=== PATIENT | female | born 1930 | race Caucasian/White ===

== ENCOUNTER 2017-09-23 17:32 | Emergency (ER) | payer MEDICARE, BC ==
[~2017-09-23] VITALS: Ht 165.1 cm; Wt 55.0 kg
[~2017-09-23 17:32] MED LIST: ASPI-1160 PO; FERR325T23 PO; HYDR-4135 PO; METF500T4 PO; METO-396 PO
[2017-09-23] MEDS ORDERED: CLONIDINE 0.1MG TABLET PO ONE ×3 (17:45→22:00)
[2017-09-24 01:00] VITALS: BP 188/80
[2017-09-24] MEDS ORDERED: HYDRALAZINE HCL 50MG TABLET PO ONE (01:00)
[2017-09-24] MEDS ORDERED: METOPROLOL TARTRATE 25MG TABLET PO ONE (01:00)
== END 2017-09-24 01:25 | disposition home or self-care (01) ==
LOC: ER 18:14
DX: I16.0 Hypertensive urgency (principal); I10 Essential (primary) hypertension; E11.65 Type 2 diabetes mellitus with hyperglycemia; Z79.82 Long term (current) use of aspirin
CPT/HCPCS: 99284

== ENCOUNTER 2017-09-24 02:00 | Emergency (ER) | payer MEDICARE, BC ==
[~2017-09-24] VITALS: Ht 165.1 cm; Wt 55.0 kg
[2017-09-24] MEDS ORDERED: HYDRALAZINE HCL 50MG TABLET PO ONE (03:30)
[2017-09-24] MEDS ORDERED: METOPROLOL TARTRATE 25MG TABLET PO ONE (03:30)
[2017-09-24] MEDS ORDERED: HYDROCODONE/ACETAMINOPHEN 10/325MG TABLET PO ONE (05:15)
[2017-09-24 07:33] VITALS: BP 171/78
== END 2017-09-24 07:42 | disposition home or self-care (01) ==
LOC: ER 02:00
DX: I10 Essential (primary) hypertension (principal); E11.9 Type 2 diabetes mellitus without complications; Z79.82 Long term (current) use of aspirin
CPT/HCPCS: 99284

== ENCOUNTER → 2017-11-10 | Outpatient (CLI) | payer MEDICARE, BC | END | disposition home or self-care (01) | LOC: CT 10:49 | PROVIDERS: ATTEND Orthopaedic Surgery | DX: S42.291A Other displaced fracture of upper end of right humerus, initial encounter for closed fracture (principal); M19.011 Primary osteoarthritis, right shoulder; X58.XXXA Exposure to other specified factors, initial encounter; Y93.89 Activity, other specified; Y92.89 Other specified places as the place of occurrence of the external cause; Y99.8 Other external cause status | CPT/HCPCS: 73200 ==

== ENCOUNTER 2018-04-10 15:17 | Inpatient (IN) | payer MEDICARE, BC ==
[~2018-04-10] VITALS: Ht 172.7 cm; Wt 78.0 kg
[~2018-04-10 15:17] MED LIST changes: +FURO-151 MT; -HYDR-4135 PO; +METF-414 PO; -METF500T4 PO
[2018-04-10] MEDS ORDERED: SODIUM CHLORIDE 0.9% 1,000 ML IV ONE (15:35)
[2018-04-10 16:34] LABS: CHLORIDE 106 mEq/L (98-107); INR 1.1; PROTHROMBIN TIME 10.8 sec (9.1-11.1)
[2018-04-10 16:36] LABS: BASOPHILS % 0.2 % (0.0-2.0); EOSINOPHILS % 0.3 % (0.0-5.0); HEMATOCRIT. 40.5 % (36.0-48.0); HEMOGLOBIN. 13.5 g/dL (12.0-16.0); LYMPHOCYTES % 9.5 % (20.0-50.0); MEAN CORPUSCULAR HEMOGLOBIN 30.1 pg (28.0-32.0); MEAN CORPUSCULAR VOLUME 90.2 fL (81.0-99.0); MONOCYTES % 5.8 % (2.0-8.0); NEUTROPHILS % 84.2 % (40.0-76.0); PLATELET 212 x1000/uL (130-400); RED BLOOD CELL COUNT 4.49 mill/uL (4.2-5.4); RED CELL DISTRIBUTION WIDTH 15.1 % (11.6-14.6)
[2018-04-10 16:45] LABS: CREATINE KINASE 462 IU/L (26-192)
[2018-04-10] MEDS ORDERED: HYDR-4134 PO (18:27)
[2018-04-10 18:38] LABS: CLARITY URINE TURBID (CLEAR); COLOR URINE YELLOW (YELLOW); KETONES URINE TRACE (NEGATIVE); LEUKOCYTE ESTERASE URINE 3+ (NEGATIVE); NITRITE URINE NEGATIVE (NEGATIVE); OCCULT BLOOD URINE TRACE (NEGATIVE); PH URINE 7.5 (4.5-8.0); PROTEIN URINE 3+ (NEGATIVE); SPECIFIC GRAVITY URINE 1.017 (1.005-1.030)
[2018-04-10] MEDS ORDERED: VANCOMYCIN 1 G PREMIX 200 ML IV ONE (19:00)
[2018-04-10] MEDS ORDERED: PIPERACILLIN/TAZ 3.375G PREMIX 50 ML IV ONE (19:00)
[2018-04-10] MEDS ORDERED: CEFTRIAXONE 1 G PREMIX 50 ML IV ONE (19:00)
[2018-04-10] MEDS ORDERED: SODIUM CHLORIDE 0.9% 1000ML BAG (SEPSIS BOLUS) IV ONE (19:00)
[2018-04-11] VITALS (7 sets, daily range): BP systolic 100–176; BP diastolic 54–102
[2018-04-11] MEDS ORDERED: DEXTROSE 50% WATER 50ML SYRINGE IV PRN (06:15)
[2018-04-11] MEDS ORDERED: ONDANSETRON HCL 4MG/2ML INJ IV PRN (06:15)
[2018-04-11] MEDS ORDERED: ACETAMINOPHEN 650MG/20.3ML UDC PO PRN (06:15)
[2018-04-11] MEDS: BLOOD SUGAR DIAGNOSTIC STRIP TEST SCH ×4 (06:31→21:16)
[2018-04-11] MEDS: INSULIN LISPRO 100 UNITS/ML SUBCUT SCH ×4 (06:43→21:28)
[2018-04-11] MEDS: HYDRALAZINE HCL 25MG TABLET PO SCH ×3 (06:49→21:35)
[2018-04-11] MEDS ORDERED: VANCOMYCIN 1 G PREMIX 200 ML IV SCH (08:00)
[2018-04-11] MEDS ORDERED: ASPIRIN 81MG TABLET PO SCH (09:00)
[2018-04-11] MEDS ORDERED: METOPROLOL TARTRATE 25MG TABLET PO SCH (09:00)
[2018-04-11 10:22] LABS: BASOPHILS % 0.3 % (0.0-2.0); EOSINOPHILS % 1.5 % (0.0-5.0); HEMATOCRIT. 29.8 % (36.0-48.0); HEMOGLOBIN. 10.2 g/dL (12.0-16.0); LYMPHOCYTES % 15.3 % (20.0-50.0); MEAN CORPUSCULAR HEMOGLOBIN 30.5 pg (28.0-32.0); MEAN CORPUSCULAR VOLUME 89.3 fL (81.0-99.0); MEAN PLATELET VOLUME 8.7 fl (7.4-10.4); MONOCYTES % 8.1 % (2.0-8.0); NEUTROPHILS % 74.8 % (40.0-76.0); PLATELET 157 x1000/uL (130-400); RED BLOOD CELL COUNT 3.34 mill/uL (4.2-5.4)
[2018-04-11] MEDS: PIPERACILLIN/TAZ 2.25G PREMIX 50 ML IV SCH ×3 (13:28→21:35)
[2018-04-11 13:46] LABS: AMMONIA 33 uMol/L (<32)
[2018-04-11] MEDS ORDERED: POTASSIUM CHLORIDE INJ 40 MEQ in DEXT 5% WATER 250 ML IV SCH (14:00)
[2018-04-11] MEDS ORDERED: PIPERACILLIN/TAZOBACTAM 2.25 G in DEXTROSE 5% WATER 50 ML IV SCH (14:00)
[2018-04-11 17:40] LABS: VITAMIN B12 SERUM >2000 pg/mL pg/mL (211-911)
[2018-04-11] MEDS ORDERED: ENOXAPARIN 30MG/0.3ML SYR SUBCUT SCH (18:15)
[2018-04-11] MEDS: NYSTATIN POWDER 15GM TOP SCH (21:17)
[2018-04-11] MEDS: CARVEDILOL 12.5MG TABLET PO SCH (21:19)
[2018-04-11] MEDS: DILTIAZEM HCL 60MG TABLET PO SCH (21:35)
[2018-04-12] VITALS (7 sets, daily range): BP systolic 132–165; BP diastolic 53–100
[2018-04-12] MEDS: PIPERACILLIN/TAZ 2.25G PREMIX 50 ML IV SCH (06:04)
[2018-04-12] MEDS: HYDRALAZINE HCL 25MG TABLET PO SCH (06:04)
[2018-04-12] MEDS: DILTIAZEM HCL 60MG TABLET PO SCH ×3 (06:04→22:00)
[2018-04-12] MEDS: BLOOD SUGAR DIAGNOSTIC STRIP TEST SCH ×4 (06:05→20:45)
[2018-04-12 07:18] LABS: BASOPHILS % 0.4 % (0.0-2.0); HEMATOCRIT. 30.3 % (36.0-48.0); HEMOGLOBIN. 10.4 g/dL (12.0-16.0); LYMPHOCYTES % 17.7 % (20.0-50.0); MEAN CORPUSCULAR HEMOGLOBIN 30.6 pg (28.0-32.0); MEAN CORPUSCULAR VOLUME 89.1 fL (81.0-99.0); MEAN PLATELET VOLUME 8.9 fl (7.4-10.4); MONOCYTES % 7.7 % (2.0-8.0); NEUTROPHILS % 73.2 % (40.0-76.0); PLATELET 167 x1000/uL (130-400); RED BLOOD CELL COUNT 3.41 mill/uL (4.2-5.4)
[2018-04-12] MEDS: INSULIN LISPRO 100 UNITS/ML SUBCUT SCH ×4 (07:50→22:56)
[2018-04-12 08:23] LABS: PHOSPHORUS 2.6 mg/dL (2.5-4.9)
[2018-04-12] MEDS ORDERED: CLOPIDOGREL 75MG TABLET PO SCH (09:00)
[2018-04-12] MEDS: NYSTATIN POWDER 15GM TOP SCH ×2 (09:00→22:57)
[2018-04-12] MEDS: CARVEDILOL 12.5MG TABLET PO SCH ×2 (09:00→20:29)
[2018-04-12] MEDS ORDERED: POTASSIUM CHLORIDE 20MEQ TABLET SR PO NR (09:15)
[2018-04-12 10:58] LABS: T4 FREE 1.41 ng/dL (0.76-1.46)
[2018-04-12] MEDS ORDERED: DIGOXIN 500MCG/2ML AMP IV NR (11:15)
[2018-04-12] MEDS: HYDRALAZINE HCL 50MG TABLET PO SCH ×2 (14:00→22:56)
[2018-04-12 16:09] LABS: BG BASE EXCESS -3.5 mmol/L (-2.0-2.0); BG CARBOXYHEMOGLOBIN 0.2 % (0.5-1.5); BG DEOXYHEMOGLOBIN 5.5 % (0.0-5.0); BG FRACTION INSPIRED OXYGEN 24; BG HCO3 ACT 19.5 mmol/L (22.0-26.0); BG METHEMOGLOBIN 0.3 % (0.0-1.5); BG OXYGEN SATURATION 94.5 % (92.0-98.5); BG PCO2 28.9 mmHg (35.0-45.0); BG PH 7.448 (7.350-7.450); BG SAMPLE SITE RIGHT BRACHIAL; BG TOTAL HEMOGLOBIN 10.9 g/dL (12.0-18.0); BG VENT MODE NASAL CANNULA
[2018-04-12] MEDS: FUROSEMIDE 40MG/4ML VIAL IVP SCH (16:30)
[2018-04-12] MEDS: CEFAZOLIN 1000MG PREMIX 50 ML IV SCH (18:41)
[2018-04-12] MEDS: APIXABAN 2.5 MG TABLET PO SCH (18:42)
[2018-04-12] MEDS ORDERED: DEXT 5%/0.45% NACL KCL 10MEQ/L 1,000 ML IV SCH (19:00)
[2018-04-13] VITALS (13 sets, daily range): BP systolic 146–189; BP diastolic 60–92
[2018-04-13] MEDS: HYDRALAZINE HCL 50MG TABLET PO SCH (05:34)
[2018-04-13] MEDS: DILTIAZEM HCL 60MG TABLET PO SCH (06:00)
[2018-04-13] MEDS ORDERED: HYDRALAZINE HCL 25MG TABLET PO NR (06:00)
[2018-04-13] MEDS: BLOOD SUGAR DIAGNOSTIC STRIP TEST SCH ×4 (06:31→20:31)
[2018-04-13 07:22] LABS: BASOPHILS % 0.5 % (0.0-2.0); EOSINOPHILS % 0.9 % (0.0-5.0); HEMOGLOBIN. 10.2 g/dL (12.0-16.0); LYMPHOCYTES % 17.8 % (20.0-50.0); MEAN CORPUSCULAR HEMOGLOBIN 30.7 pg (28.0-32.0); MEAN CORPUSCULAR VOLUME 89.9 fL (81.0-99.0); MEAN PLATELET VOLUME 8.5 fl (7.4-10.4); MONOCYTES % 7.2 % (2.0-8.0); NEUTROPHILS % 73.6 % (40.0-76.0); PLATELET 144 x1000/uL (130-400); RED BLOOD CELL COUNT 3.34 mill/uL (4.2-5.4); RED CELL DISTRIBUTION WIDTH 15.3 % (11.6-14.6)
[2018-04-13] MEDS: APIXABAN 2.5 MG TABLET PO SCH ×2 (08:31→16:47)
[2018-04-13] MEDS: CEFAZOLIN 1000MG PREMIX 50 ML IV SCH ×2 (08:32→16:47)
[2018-04-13] MEDS: FUROSEMIDE 40MG/4ML VIAL IVP SCH (08:32)
[2018-04-13] MEDS: CARVEDILOL 12.5MG TABLET PO SCH ×2 (08:32→20:16)
[2018-04-13] MEDS: INSULIN LISPRO 100 UNITS/ML SUBCUT SCH ×4 (08:33→20:31)
[2018-04-13] MEDS: NYSTATIN POWDER 15GM TOP SCH ×2 (09:00→20:31)
[2018-04-13 09:18] LABS: CREATINE KINASE MB FRACTION 6.5 ng/mL (0.5-3.6)
[2018-04-13 10:15] LABS: PHOSPHORUS 2.8 mg/dL (2.5-4.9)
[2018-04-13] MEDS ORDERED: POTASSIUM CHLORIDE INJ 40 MEQ in DEXT 5% WATER 250 ML IV NR (13:00)
[2018-04-13] MEDS ORDERED: HYDRALAZINE HCL 25MG TABLET PO SCH (14:00)
[2018-04-13] MEDS: HYDRALAZINE HCL 100MG TABLET PO SCH (21:50)
[2018-04-14] VITALS (12 sets, daily range): BP systolic 141–167; BP diastolic 64–96
[2018-04-14] MEDS: HYDRALAZINE HCL 100MG TABLET PO SCH ×4 (05:08→22:32)
[2018-04-14] MEDS: CEFAZOLIN 1000MG PREMIX 50 ML IV SCH ×2 (05:08→16:44)
[2018-04-14] MEDS: BLOOD SUGAR DIAGNOSTIC STRIP TEST SCH ×4 (05:19→21:32)
[2018-04-14] MEDS: INSULIN LISPRO 100 UNITS/ML SUBCUT SCH ×4 (05:19→21:44)
[2018-04-14 06:34] LABS: BASOPHILS % 0.3 % (0.0-2.0); EOSINOPHILS % 1.3 % (0.0-5.0); HEMATOCRIT. 33.8 % (36.0-48.0); HEMOGLOBIN. 11.4 g/dL (12.0-16.0); LYMPHOCYTES % 17.6 % (20.0-50.0); MEAN CORPUSCULAR HEMOGLOBIN 30.1 pg (28.0-32.0); MEAN CORPUSCULAR VOLUME 89.5 fL (81.0-99.0); MEAN PLATELET VOLUME 8.9 fl (7.4-10.4); MONOCYTES % 8.3 % (2.0-8.0); NEUTROPHILS % 72.5 % (40.0-76.0); PLATELET 171 x1000/uL (130-400); RED BLOOD CELL COUNT 3.77 mill/uL (4.2-5.4); RED CELL DISTRIBUTION WIDTH 15.2 % (11.6-14.6)
[2018-04-14] MEDS: APIXABAN 2.5 MG TABLET PO SCH (08:05)
[2018-04-14] MEDS: CARVEDILOL 12.5MG TABLET PO SCH ×2 (08:05→21:45)
[2018-04-14] MEDS: NYSTATIN POWDER 15GM TOP SCH ×2 (08:07→22:12)
[2018-04-14 08:25] LABS: PHOSPHORUS 2.8 mg/dL (2.5-4.9)
[2018-04-14] MEDS: FUROSEMIDE 40MG/4ML VIAL IVP SCH (08:39)
[2018-04-14 08:51] LABS: BG BASE EXCESS -2.1 mmol/L (-2.0-2.0); BG CARBOXYHEMOGLOBIN 0.6 % (0.5-1.5); BG DEOXYHEMOGLOBIN 11.8 % (0.0-5.0); BG FRACTION INSPIRED OXYGEN 28; BG HCO3 ACT 21.2 mmol/L (22.0-26.0); BG METHEMOGLOBIN 0.3 % (0.0-1.5); BG OXYGEN SATURATION 88.1 % (92.0-98.5); BG OXYHEMOGLOBIN 87.3 % (94.0-97.0); BG PCO2 31.9 mmHg (35.0-45.0); BG PH 7.441 (7.350-7.450); BG PO2 51.6 mmHg (75.0-100.0); BG SAMPLE SITE RIGHT RADIAL; BG TOTAL HEMOGLOBIN 12.4 g/dL (12.0-18.0); BG VENT MODE NASAL CANNULA
[2018-04-14] MEDS: ZINC SULFATE 220 MG ( 50 ) CAPSULE PO SCH (16:44)
[2018-04-14] MEDS: ASCORBIC ACID 250 MG TABLET PO SCH (21:45)
[2018-04-15] VITALS (12 sets, daily range): BP systolic 110–166; BP diastolic 50–85
[2018-04-15] MEDS: CEFAZOLIN 1000MG PREMIX 50 ML IV SCH ×2 (05:24→17:08)
[2018-04-15] MEDS: HYDRALAZINE HCL 100MG TABLET PO SCH ×3 (05:25→22:44)
[2018-04-15] MEDS: BLOOD SUGAR DIAGNOSTIC STRIP TEST SCH ×4 (06:36→21:04)
[2018-04-15 06:55] LABS: BASOPHILS % 0.4 % (0.0-2.0); EOSINOPHILS % 1.4 % (0.0-5.0); HEMOGLOBIN. 11.4 g/dL (12.0-16.0); LYMPHOCYTES % 19.5 % (20.0-50.0); MEAN CORPUSCULAR HEMOGLOBIN 30.6 pg (28.0-32.0); MEAN CORPUSCULAR VOLUME 88.6 fL (81.0-99.0); MEAN PLATELET VOLUME 8.9 fl (7.4-10.4); MONOCYTES % 7.7 % (2.0-8.0); PLATELET 162 x1000/uL (130-400); RED BLOOD CELL COUNT 3.73 mill/uL (4.2-5.4); RED CELL DISTRIBUTION WIDTH 15.7 % (11.6-14.6)
[2018-04-15] MEDS: INSULIN LISPRO 100 UNITS/ML SUBCUT SCH ×4 (08:14→21:21)
[2018-04-15] MEDS: ASCORBIC ACID 250 MG TABLET PO SCH ×2 (08:15→21:48)
[2018-04-15] MEDS: CARVEDILOL 12.5MG TABLET PO SCH ×2 (08:15→21:49)
[2018-04-15] MEDS: ZINC SULFATE 220 MG ( 50 ) CAPSULE PO SCH (08:15)
[2018-04-15] MEDS: FUROSEMIDE 40MG/4ML VIAL IVP SCH ×2 (08:16→08:52)
[2018-04-15] MEDS: NYSTATIN POWDER 15GM TOP SCH ×2 (08:16→21:49)
[2018-04-15 08:20] LABS: PHOSPHORUS 3.1 mg/dL (2.5-4.9)
[2018-04-15] MEDS ORDERED: POTASSIUM CHLORIDE 20MEQ TABLET SR PO SCH (09:00)
[2018-04-16] VITALS (14 sets, daily range): BP systolic 118–174; BP diastolic 51–93
[2018-04-16] MEDS: CEFAZOLIN 1000MG PREMIX 50 ML IV SCH ×2 (05:28→16:58)
[2018-04-16] MEDS: HYDRALAZINE HCL 100MG TABLET PO SCH ×3 (05:28→21:49)
[2018-04-16] MEDS: BLOOD SUGAR DIAGNOSTIC STRIP TEST SCH ×4 (05:55→21:39)
[2018-04-16 06:01] LABS: PHOSPHORUS 3.2 mg/dL (2.5-4.9)
[2018-04-16 06:07] LABS: BASOPHILS % 0.2 % (0.0-2.0); EOSINOPHILS % 1.5 % (0.0-5.0); HEMOGLOBIN. 10.6 g/dL (12.0-16.0); LYMPHOCYTES % 18.7 % (20.0-50.0); MEAN CORPUSCULAR HEMOGLOBIN 30.5 pg (28.0-32.0); MEAN CORPUSCULAR VOLUME 88.9 fL (81.0-99.0); MEAN PLATELET VOLUME 9.3 fl (7.4-10.4); MONOCYTES % 8.1 % (2.0-8.0); NEUTROPHILS % 71.5 % (40.0-76.0); PLATELET 152 x1000/uL (130-400); RED BLOOD CELL COUNT 3.49 mill/uL (4.2-5.4); RED CELL DISTRIBUTION WIDTH 15.3 % (11.6-14.6)
[2018-04-16] MEDS: FUROSEMIDE 40MG/4ML VIAL IVP SCH (08:40)
[2018-04-16] MEDS: ASCORBIC ACID 250 MG TABLET PO SCH ×2 (08:41→21:49)
[2018-04-16] MEDS: ZINC SULFATE 220 MG ( 50 ) CAPSULE PO SCH (08:41)
[2018-04-16] MEDS: CARVEDILOL 12.5MG TABLET PO SCH ×2 (08:41→21:49)
[2018-04-16] MEDS: INSULIN LISPRO 100 UNITS/ML SUBCUT SCH ×4 (08:42→21:50)
[2018-04-16] MEDS: NYSTATIN POWDER 15GM TOP SCH ×2 (08:43→21:49)
[2018-04-16] MEDS: POTASSIUM CHLORIDE 20MEQ/PACKET NG SCH (12:58)
[2018-04-17] VITALS (13 sets, daily range): BP systolic 131–168; BP diastolic 49–89
[2018-04-17] MEDS: HYDRALAZINE HCL 100MG TABLET PO SCH ×3 (05:25→21:27)
[2018-04-17] MEDS: CEFAZOLIN 1000MG PREMIX 50 ML IV SCH ×2 (05:25→17:15)
[2018-04-17 06:09] LABS: BASOPHILS % 0.2 % (0.0-2.0); EOSINOPHILS % 1.2 % (0.0-5.0); HEMATOCRIT. 29.9 % (36.0-48.0); HEMOGLOBIN. 10.4 g/dL (12.0-16.0); LYMPHOCYTES % 17.6 % (20.0-50.0); MEAN CORPUSCULAR HEMOGLOBIN 30.8 pg (28.0-32.0); MEAN CORPUSCULAR VOLUME 88.6 fL (81.0-99.0); MEAN PLATELET VOLUME 9.1 fl (7.4-10.4); MONOCYTES % 8.2 % (2.0-8.0); NEUTROPHILS % 72.8 % (40.0-76.0); PLATELET 146 x1000/uL (130-400); RED BLOOD CELL COUNT 3.37 mill/uL (4.2-5.4); RED CELL DISTRIBUTION WIDTH 15.3 % (11.6-14.6)
[2018-04-17] MEDS: BLOOD SUGAR DIAGNOSTIC STRIP TEST SCH ×4 (06:20→21:33)
[2018-04-17 06:39] LABS: PHOSPHORUS 2.9 mg/dL (2.5-4.9)
[2018-04-17] MEDS: INSULIN LISPRO 100 UNITS/ML SUBCUT SCH ×4 (08:29→21:32)
[2018-04-17] MEDS: ZINC SULFATE 220 MG ( 50 ) CAPSULE PO SCH (08:30)
[2018-04-17] MEDS: NYSTATIN POWDER 15GM TOP SCH ×2 (08:30→21:33)
[2018-04-17] MEDS: CARVEDILOL 12.5MG TABLET PO SCH ×2 (08:30→21:26)
[2018-04-17] MEDS: ASCORBIC ACID 250 MG TABLET PO SCH ×2 (08:30→21:26)
[2018-04-17] MEDS: POTASSIUM CHLORIDE 20MEQ/PACKET NG SCH (08:30)
[2018-04-17] MEDS: FUROSEMIDE 20MG/2ML VIAL IVP SCH (10:39)
[2018-04-17] MEDS ORDERED: POTASSIUM CHLORIDE INJ 40 MEQ in DEXT 5% WATER 250 ML IV NR (11:00)
[2018-04-17 15:22] LABS: INR 1.1; PARTIAL THROMBOPLASTIN TIME 27.1 sec (23.4-31.0); PROTHROMBIN TIME 10.6 sec (9.1-11.1)
[2018-04-17 15:33] LABS: TOTAL IRON BINDING CAPACITY 201 ug/dL (250-450)
[2018-04-17 16:00] LABS: FOLIC ACID (FOLATE) SERUM >20 ng/mL ng/mL (>5.38); VITAMIN B12 SERUM 1730 pg/mL (211-911)
[2018-04-17 16:19] LABS: FERRITIN 171 ng/mL (10-291)
[2018-04-17] MEDS: PANTOPRAZOLE SODIUM 40 MG/VIAL IV SCH (17:15)
[2018-04-17] MEDS: METRONIDAZOLE 500 MG PREMIX 100 ML IV SCH (19:52)
[2018-04-17 20:23] LABS: HEMATOCRIT 30.3 % (36.0-48.0); HEMOGLOBIN 10.3 g/dL (12.0-16.0)
[2018-04-17 20:32] LABS: AMMONIA 22 uMol/L (<32)
[2018-04-18] VITALS (9 sets, daily range): BP systolic 134–169; BP diastolic 60–94
[2018-04-18 02:30] LABS: HEMATOCRIT 30.1 % (36.0-48.0); HEMOGLOBIN 10.2 g/dL (12.0-16.0)
[2018-04-18] MEDS: METRONIDAZOLE 500 MG PREMIX 100 ML IV SCH ×3 (04:27→20:00)
[2018-04-18] MEDS: CEFAZOLIN 1000MG PREMIX 50 ML IV SCH ×2 (04:55→23:24)
[2018-04-18 06:56] LABS: BASOPHILS % 0.6 % (0.0-2.0); EOSINOPHILS % 1.7 % (0.0-5.0); HEMATOCRIT. 30.3 % (36.0-48.0); HEMOGLOBIN. 10.6 g/dL (12.0-16.0); LYMPHOCYTES % 18.7 % (20.0-50.0); MEAN CORPUSCULAR HEMOGLOBIN 30.8 pg (28.0-32.0); MEAN CORPUSCULAR VOLUME 88.5 fL (81.0-99.0); MEAN PLATELET VOLUME 9.4 fl (7.4-10.4); MONOCYTES % 9.2 % (2.0-8.0); NEUTROPHILS % 69.8 % (40.0-76.0); PLATELET 147 x1000/uL (130-400); RED BLOOD CELL COUNT 3.43 mill/uL (4.2-5.4); RED CELL DISTRIBUTION WIDTH 15.3 % (11.6-14.6)
[2018-04-18] MEDS: BLOOD SUGAR DIAGNOSTIC STRIP TEST SCH ×4 (06:57→21:00)
[2018-04-18] MEDS: INSULIN LISPRO 100 UNITS/ML SUBCUT SCH ×5 (07:02→21:00)
[2018-04-18] MEDS: HYDRALAZINE HCL 100MG TABLET PO SCH (07:02)
[2018-04-18] MEDS: ASCORBIC ACID 250 MG TABLET PO SCH ×2 (08:21→22:51)
[2018-04-18] MEDS: ZINC SULFATE 220 MG ( 50 ) CAPSULE PO SCH (08:21)
[2018-04-18] MEDS: LACTOBACILLUS GG CAPSULE PO SCH (08:21)
[2018-04-18] MEDS: FUROSEMIDE 20MG/2ML VIAL IVP SCH (08:22)
[2018-04-18] MEDS: POTASSIUM CHLORIDE 20MEQ/PACKET NG SCH (08:22)
[2018-04-18] MEDS: CARVEDILOL 12.5MG TABLET PO SCH ×2 (08:22→22:51)
[2018-04-18] MEDS: PANTOPRAZOLE SODIUM 40 MG/VIAL IV SCH ×2 (08:22→17:59)
[2018-04-18] MEDS: NYSTATIN POWDER 15GM TOP SCH ×2 (08:24→21:00)
[2018-04-18] MEDS ORDERED: CEFAZOLIN 1000MG PREMIX 50 ML IV SCH (19:00)
[2018-04-19] VITALS (7 sets, daily range): BP systolic 135–180; BP diastolic 60–85
[2018-04-19] MEDS: METRONIDAZOLE 500 MG PREMIX 100 ML IV SCH ×2 (04:00→14:26)
[2018-04-19 07:02] LABS: BASOPHILS % 0.6 % (0.0-2.0); EOSINOPHILS % 1.2 % (0.0-5.0); HEMATOCRIT. 31.2 % (36.0-48.0); HEMOGLOBIN. 10.8 g/dL (12.0-16.0); LYMPHOCYTES % 20.7 % (20.0-50.0); MEAN CORPUSCULAR HEMOGLOBIN 30.5 pg (28.0-32.0); MEAN CORPUSCULAR VOLUME 88.1 fL (81.0-99.0); MEAN PLATELET VOLUME 9.5 fl (7.4-10.4); MONOCYTES % 9.9 % (2.0-8.0); NEUTROPHILS % 67.6 % (40.0-76.0); PLATELET 148 x1000/uL (130-400); RED BLOOD CELL COUNT 3.54 mill/uL (4.2-5.4); RED CELL DISTRIBUTION WIDTH 14.8 % (11.6-14.6)
[2018-04-19] MEDS: HYDRALAZINE HCL 100MG TABLET PO SCH ×2 (07:27→14:08)
[2018-04-19] MEDS: BLOOD SUGAR DIAGNOSTIC STRIP TEST SCH ×4 (07:31→21:37)
[2018-04-19] MEDS: FUROSEMIDE 20MG/2ML VIAL IVP SCH (08:49)
[2018-04-19] MEDS: PANTOPRAZOLE SODIUM 40 MG/VIAL IV SCH ×2 (08:49→17:59)
[2018-04-19] MEDS: LACTOBACILLUS GG CAPSULE PO SCH (08:50)
[2018-04-19] MEDS: ASCORBIC ACID 250 MG TABLET PO SCH ×2 (08:50→20:43)
[2018-04-19] MEDS: POTASSIUM CHLORIDE 20MEQ/PACKET NG SCH (08:50)
[2018-04-19] MEDS: CARVEDILOL 12.5MG TABLET PO SCH ×2 (08:50→20:43)
[2018-04-19] MEDS: ZINC SULFATE 220 MG ( 50 ) CAPSULE PO SCH (08:50)
[2018-04-19] MEDS: NYSTATIN POWDER 15GM TOP SCH ×2 (08:52→21:19)
[2018-04-19] MEDS: INSULIN LISPRO 100 UNITS/ML SUBCUT SCH ×4 (08:53→21:37)
[2018-04-19] MEDS ORDERED: AMLODIPINE 5MG TABLET NG SCH (09:30)
[2018-04-19 09:39] LABS: PHOSPHORUS 2.7 mg/dL (2.5-4.9)
[2018-04-19] MEDS: CEFAZOLIN 1000MG PREMIX 50 ML IV SCH (12:14)
[2018-04-20 04:15] LABS: OVA & PARASITE EXAM Final report (.)
[2018-04-20 14:21] LABS: FECAL FAT NEUTRAL Normal (.); FECAL FAT TOTAL Normal (.)
== END 2018-04-19 21:49 | DRG 853 ==
LOC: ER 15:17 → 6WST 18:53 → EDBEDREQTM 18:56 → EDBEDREQ 18:56 → ENRESERV 04-11 01:50 → 3WST 04-12 16:43 → 6EST 04-18 14:15
PROVIDERS: ADMIT Internal Medicine; ATTEND Internal Medicine
PROC: 4A00X4Z Measurement of Central Nervous Electrical Activity, External Approach (ICD-10-PCS; 2018-04-12)
PROC: 0YQXXZZ Repair Right 5th Toe, External Approach (ICD-10-PCS; principal; 2018-04-14)
DX: A41.9 Sepsis, unspecified organism (principal); G93.41 Metabolic encephalopathy; I50.23 Acute on chronic systolic (congestive) heart failure; I21.4 Non-ST elevation (NSTEMI) myocardial infarction; J96.00 Acute respiratory failure, unspecified whether with hypoxia or hypercapnia; I63.9 Cerebral infarction, unspecified; N39.0 Urinary tract infection, site not specified; I42.9 Cardiomyopathy, unspecified; I48.92 Unspecified atrial flutter; M62.82 Rhabdomyolysis; E87.0 Hyperosmolality and hypernatremia; E44.1 Mild protein-calorie malnutrition; E87.2 Acidosis; I13.0 Hypertensive heart and chronic kidney disease with heart failure and stage 1 through stage 4 chronic kidney disease, or unspecified chronic kidney disease; N17.9 Acute kidney failure, unspecified; N18.4 Chronic kidney disease, stage 4 (severe); R47.01 Aphasia; I27.20 Pulmonary hypertension, unspecified; I48.91 Unspecified atrial fibrillation; E87.6 Hypokalemia; D64.9 Anemia, unspecified; B96.1 Klebsiella pneumoniae [K. pneumoniae] as the cause of diseases classified elsewhere; B96.4 Proteus (mirabilis) (morganii) as the cause of diseases classified elsewhere; E11.22 Type 2 diabetes mellitus with diabetic chronic kidney disease; L89.320 Pressure ulcer of left buttock, unstageable; L89.310 Pressure ulcer of right buttock, unstageable; L89.150 Pressure ulcer of sacral region, unstageable; F03.90 Unspecified dementia, unspecified severity, without behavioral disturbance, psychotic disturbance, mood disturbance, and anxiety; K80.20 Calculus of gallbladder without cholecystitis without obstruction; E78.5 Hyperlipidemia, unspecified; I08.0 Rheumatic disorders of both mitral and aortic valves; J44.9 Chronic obstructive pulmonary disease, unspecified; R13.10 Dysphagia, unspecified; R62.7 Adult failure to thrive; S91.114A Laceration without foreign body of right lesser toe(s) without damage to nail, initial encounter; Z96.643 Presence of artificial hip joint, bilateral; R19.7 Diarrhea, unspecified; Z66 Do not resuscitate; Z51.5 Encounter for palliative care; Z82.49 Family history of ischemic heart disease and other diseases of the circulatory system; Z83.3 Family history of diabetes mellitus; Z86.73 Personal history of transient ischemic attack (TIA), and cerebral infarction without residual deficits; Z87.81 Personal history of (healed) traumatic fracture; Z79.82 Long term (current) use of aspirin; Z79.899 Other long term (current) drug therapy; Z90.49 Acquired absence of other specified parts of digestive tract; Z90.710 Acquired absence of both cervix and uterus; Z68.26 Body mass index [BMI] 26.0-26.9, adult; W18.39XA Other fall on same level, initial encounter; Y93.89 Activity, other specified; Y92.009 Unspecified place in unspecified non-institutional (private) residence as the place of occurrence of the external cause; Y92.098 Other place in other non-institutional residence as the place of occurrence of the external cause; Y99.8 Other external cause status
CPT/HCPCS: 36415; 36600; 70551; 71045; 71250; 72170; 73030; 76700; 80048; 80061; 80076; 80202; 82140; 82270; 82375; 82550; 82553; 82607; 82705; 82728; 82746; 82805; 82962; 83036; 83540; 83550; 83605; 83735; 83880; 83935; 84100; 84134; 84439; 84443; 84484; 85014; 85018; 85044; 85379; 87015; 87045; 87077; 87177; 87186; 87209; 87427; 87449; 89055; 92610; 93005; 93306; 93970; 96365; 97163; 99291; A6261; C9113; J0690; J0696; J1160; J1650; J1815; J1940; J2543; J3370; J3480; J3490; J7030; J7040; J7050; J7060; A4315